=== PATIENT | female | born 1980 | race Caucasian/White ===

== ENCOUNTER 2017-07-24 05:52 | Emergency (ER) | payer OTHER ==
--- NOTE | 2017-07-24 06:08 | C.PDOC ---
History Of Present Illness Patient presents to the ED with complaints of chest pain with cough that has been worsening for three days. Patient notes cough is non-productive and has a history of smoking. Denies fever, chills, nausea, or vomiting. Time Seen by Provider: 07/24/17 06:08 Chief Complaint (Nursing): Chest Pain History Per: Patient History/Exam Limitations: no limitations Onset/Duration Of Symptoms: Days (3 days ) Current Symptoms Are (Timing): Still Present Severity: Mild Pain Scale Rating Of: 4 Quality: "Pain" Associated Symptoms: denies: Nausea, Dyspnea, Diaphoresis, Syncope Modifying Factors: None Exacerbating Factors: Other (cough ) Alleviating Factors: None Recent travel outside of the [place]: No Past Medical History Reviewed: Historical Data, Nursing Documentation, Vital Signs Vital Signs: Last Vital Signs Temp 99.3 F 07/24/17 06:01 Pulse 114 H 07/24/17 06:01 Resp 20 07/24/17 06:01 BP 108/73 07/24/17 06:01 Pulse Ox 96 07/24/17 06:41 - Medical History PMH: Hypercholesterolemia Family History: States: Unknown Family Hx - Social History Hx Tobacco Use: Yes (light smoker) Hx Alcohol Use: No Hx Substance Use: No - Immunization History Hx Tetanus Toxoid Vaccination: No Hx Influenza Vaccination: No Hx Pneumococcal Vaccination: No Review Of Systems Constitutional: Negative for: Fever, Chills Cardiovascular: Positive for: Chest Pain Respiratory: Positive for: Cough. Negative for: Shortness of Breath Gastrointestinal: Negative for: Nausea, Vomiting Genitourinary: Negative for: Dysuria Musculoskeletal: Negative for: Back Pain Skin: Negative for: Rash Neurological: Negative for: Weakness Psych: Negative for: Anxiety Physical Exam - Physical Exam Appears: Non-toxic, No Acute Distress Skin: Warm, Dry Head: Atraumatic Eye(s): bilateral: Normal Inspection Oral Mucosa: Moist Neck: Supple Chest: Symmetrical, No Deformity Cardiovascular: Rhythm Regular, No Murmur Respiratory: No Rales, No Rhonchi, Wheezing (scattered wheezing ) Gastrointestinal/Abdominal: Soft, No Tenderness, No Distention, No Guarding, No Rebound Back: No CVA Tenderness Extremity: Normal ROM, No Tenderness Extremity: Bilateral: Atraumatic, Normal Color And Temperature, Normal ROM Pulses: Left Dorsalis Pedis: Normal, Right Dorsalis Pedis: Normal Neurological/Psych: Oriented x3, Normal Speech, Normal Cognition Gait: Steady ED Course And Treatment ECG: Interpreted By Me, Viewed By Me ECG Rhythm: Sinus Rhythm (99), Nonspecific Changes O2 Sat by Pulse Oximetry: 96 (RA) Pulse Ox Interpretation: Normal - Radiology CXR: Interpreted by Me, Viewed By Me CXR Interpretation: No: Infiltrates, Fracture, Pnemothorax Disposition Counseled Patient/Family Regarding: Studies Performed, Diagnosis - Disposition Disposition Time: 07:00 Condition: FAIR Forms: [facility] (Solomon Islander) - Clinical Impression Clinical Impression: Bronchitis - Scribe Statement The provider has reviewed the documentation as recorded by the Scribe Roxanne Mora All medical record entries made by the Scribe were at my direction and personally dictated by me. I have reviewed the chart and agree that the record accurately reflects my personal performance of the history, physical exam, medical decision making, and the department course for this patient. I have also personally directed, reviewed, and agree with the discharge instructions and disposition. Physician Patient Turnover Patient Signed Over To: Imelda Bragg Handoff Comments: pending labs and disposition
[2017-07-24] MEDS ORDERED: Aspirin 325 mg EC Tablets PO STA (06:12)
[2017-07-24] MEDS ORDERED: Albuterol-Ipratrop 3 mg / 0.5 (3 ml) UD IH SCH (06:15)
[2017-07-24] MEDS ORDERED: Albuterol-Ipratrop 3 mg / 0.5 (3 ml) UD ONE (06:25)
[2017-07-24] MEDS ORDERED: Aspirin 325 mg EC Tablets PO ONE (06:25)
[2017-07-24 07:00] LABS: BASO % 0.4 % (0.0-2.0); EOS % 0.2 % (0.0-4.0); HEMATOCRIT 38.5 % (34.0-47.0); LYMPH # 2.4 K/uL (1.0-4.3); LYMPH % 22.3 % (20.0-40.0); MEAN CELL VOLUME 90.7 fL (81.0-99.0); MEAN CORPUSCULAR HEMOGLOBIN 31.3 pg (27.0-31.0); MEAN CORPUSCULAR HGB CONC 34.6 g/dL (33.0-37.0); MEAN PLATELET VOLUME 7.7 fL (7.2-11.7); MONO # 1.2 K/uL (0.0-0.8); MONO % 11.4 % (0.0-10.0); RED CELL DISTRIBUTION WIDTH 12.4 % (11.5-14.5); WHITE BLOOD COUNT 10.7 K/uL (4.8-10.8)
[2017-07-24 07:12] LABS: ALB/GLOB RATIO 1.5 (1.0-2.1); ALKALINE PHOSPHATASE 61 U/L (38-126); ALT/SGPT 44 U/L (9-52); AST/SGOT 36 U/L (14-36); BILIRUBIN,TOTAL 0.6 mg/dL (0.2-1.3); BLOOD UREA NITROGEN 10 mg/dL (7-17); CALCIUM 8.4 mg/dl (8.6-10.4); CARBON DIOXIDE 21 mmol/L (22-30); CHLORIDE 102 mmol/L (98-107); GFR AFRICAN-AMERICAN > 60; GLUCOSE,RANDOM 109 mg/dL (65-105); POTASSIUM 3.9 mmol/L (3.6-5.2); SODIUM 138 mmol/L (132-148); TOTAL PROTEIN 6.5 g/dL (6.3-8.3)
[2017-07-24 07:16] LABS: INR 1.1
[2017-07-24 07:18] LABS: RBC URINE 17 /hpf (0-3); URINE BACTERIA OCC (<OCC); URINE BILIRUBIN NEGATIVE (NEGATIVE); URINE BLOOD 1+ (NEGATIVE); URINE COLOR Yellow (YELLOW); URINE GLUCOSE (UA) NORMAL (Normal); URINE KETONE NEGATIVE (NEGATIVE); URINE LEUKOCYTE ESTERASE NEG Leu/uL (Negative); URINE PROTEIN NEGATIVE (NEGATIVE); URINE UROBILINOGEN NORMAL mg/dL (0.2-1.0); WBC URINE 5 /hpf (0-5)
[2017-07-24 07:20] VITALS: O2SAT 96
--- NOTE | 2017-07-24 08:55 | RAD ---
PROCEDURE: CHEST RADIOGRAPH, 1 VIEW HISTORY: Shortness of breath COMPARISON: None available. FINDINGS: LUNGS: The lungs are clear. PLEURA: No pneumothorax or pleural fluid seen. CARDIOVASCULAR: Normal. OSSEOUS STRUCTURES: No significant abnormalities. VISUALIZED UPPER ABDOMEN: Normal. OTHER FINDINGS: None. IMPRESSION: No active pulmonary disease.
[2017-07-24 09:13] VITALS: BP 113/59; PULSE 94; RESP 18; TEMP 98.3
== END 2017-07-24 09:13 | disposition home or self-care (01) ==
LOC: C.ER 05:52
DX: J45.901 Unspecified asthma with (acute) exacerbation (principal)
CPT/HCPCS: 71010; 80053; 81001; 84484; 84703; 85025; 85610; 96374; 96375; 99285; J2405; J2930

== ENCOUNTER 2017-08-15 13:01 | Emergency (ER) | payer OTHER ==
[2017-08-15 13:06] VITALS: O2SAT 96
[2017-08-15] MEDS ORDERED: guaiFENesin 200 mg/10 ml Syrup UD PO ONE (13:39)
[2017-08-15] MEDS ORDERED: guaiFENesin 200 mg/10 ml Syrup UD ONE (14:00)
[2017-08-15] MEDS ORDERED: Albuterol-Ipratrop 3 mg / 0.5 (3 ml) UD ONE (14:00)
--- NOTE | 2017-08-15 14:02 | C.PDOC ---
History Of Present Illness 37 year old female with a history of asthma and smoking presents to the ED with complaints of cough, cold symptoms, body aches, and chills for two days. Patient notes a sick contact, her friend, and denies fever, nausea, vomiting, chest pain, shortness of breath, or recent travel. Time Seen by Provider: 08/15/17 13:21 Chief Complaint (Nursing): Cough, Cold, Congestion History Per: Patient History/Exam Limitations: no limitations Onset/Duration Of Symptoms: Days (2 days ) Current Symptoms Are (Timing): Still Present Location Of Pain: Diffuse Myalgias Sick Contacts (Context): Friend(s) Associated Symptoms: Chills, Cough, Myalgias. denies: Fever, Nausea, Vomiting, Diarrhea Ear Symptoms: Bilateral: None Recent travel outside of the [place]: No Past Medical History Reviewed: Historical Data, Nursing Documentation, Vital Signs Vital Signs: Last Vital Signs Temp 98.0 F 08/15/17 15:45 Pulse 86 08/15/17 15:45 Resp 18 08/15/17 15:54 BP 111/70 08/15/17 15:45 Pulse Ox 96 08/15/17 18:27 - Medical History PMH: Asthma, Hypercholesterolemia Family History: States: Unknown Family Hx - Social History Hx Tobacco Use: Yes (light smoker) Hx Alcohol Use: No Hx Substance Use: No - Immunization History Hx Tetanus Toxoid Vaccination: No Hx Influenza Vaccination: No Hx Pneumococcal Vaccination: No Review Of Systems Constitutional: Positive for: Chills, Other (generalized bodyaches ). Negative for: Fever Cardiovascular: Negative for: Chest Pain, Palpitations Respiratory: Positive for: Cough. Negative for: Shortness of Breath Gastrointestinal: Negative for: Nausea, Vomiting, Abdominal Pain, Diarrhea Physical Exam - Physical Exam Appears: Non-toxic, No Acute Distress Skin: Warm, Dry Head: Atraumatic, Normacephalic Eye(s): bilateral: Normal Inspection, PERRL, EOMI Ear(s): Bilateral: Normal Nose: Normal, No Discharge Oral Mucosa: Moist Throat: Normal, No Erythema, No Exudate Neck: Normal ROM, Supple Chest: Symmetrical, No Deformity Cardiovascular: Rhythm Regular, No Murmur Respiratory: No Accessory Muscle Use, No Rales, Rhonchi (slight rhonci ), Wheezing (expiratory wheeze bilaterally ) ED Course And Treatment O2 Sat by Pulse Oximetry: 96 (RA) Progress Note: CXR and nebulizer treatment was ordered. Patient was given predniSONE. Medical Decision Making Medical Decision Making: CXR : NAD, as read by PA. On re-evaluation, patient is resting comfortably in bed in no acute distress, breathing is easy and unlabored, speaking in full sentences. On exam, lungs are clear to auscultation with no wheezing and no rhonchi. Disposition Counseled Patient/Family Regarding: Studies Performed, Diagnosis, Need For Followup, Rx Given - Disposition Disposition: HOME/ ROUTINE Disposition Time: 15:15 Condition: IMPROVED Additional Instructions: Follow up with your pmd in 2 days for re-evaluation and follow up. Rest, drink plenty of fluids, take medication as prescribed. Return to the ER at any time for any new or worsening symptoms. Prescriptions: Albuterol 0.083% [Albuterol Sulfate 3 Ml] 3 ml IH Q4 #100 neb Azithromycin [Z-Dragan] 250 mg PO DAILY #6 tab Guaifenesin 400 mg PO QID #20 tablet Nebulizer [Altera Nebulizer] 1 each MC DAILY #1 each predniSONE [predniSONE Tab] 40 mg PO DAILY #8 tab Instructions: Acute Bronchitis (ED) Forms: [facility] (Salvadorean), Work Excuse Print Language: SLOVENIAN - Clinical Impression Clinical Impression: Bronchitis - PA / REED FIXER / Resident Statement MD/DO has reviewed & agrees with the documentation as recorded. - Scribe Statement The provider has reviewed the documentation as recorded by the Scribe Roxanne Mora All medical record entries made by the Scribe were at my direction and personally dictated by me. I have reviewed the chart and agree that the record accurately reflects my personal performance of the history, physical exam, medical decision making, and the department course for this patient. I have also personally directed, reviewed, and agree with the discharge instructions and disposition.
[2017-08-15] MEDS: Albuterol-Ipratrop 3 mg / 0.5 (3 ml) UD IH SCH (14:12)
[2017-08-15 15:46] VITALS: BP 111/70; PULSE 86; TEMP 98
[2017-08-15 15:55] VITALS: RESP 18
--- NOTE | 2017-08-15 16:58 | RAD ---
HISTORY: cough COMPARISON: 07/24/2017 TECHNIQUE: Chest PA and lateral FINDINGS: LUNGS: On the frontal view a small triangular opacity projects over the left hemidiaphragm and left heart -not appreciated on the prior study or the chest x-ray with the obstructive series dated 06/15/2016 . No prior lateral views for comparison available. Given the marked shallow inspiration on both the frontal and lateral views -the possibility of a small triangular consolidative infiltrate and/or atelectasis projecting over the left lung base perhaps posteriorly on lateral view needs to be considered. PLEURA: No significant pleural effusion identified. No pneumothorax apparent. CARDIOVASCULAR: Normal. OSSEOUS STRUCTURES: No significant abnormalities. VISUALIZED UPPER ABDOMEN: Normal. OTHER FINDINGS: None. IMPRESSION: Indeterminate findings at the left lung base. Recommend repeat chest x-ray PA and lateral with much greater inspiration. If the patient cannot tolerate this, consider noncontrast CT chest
== END 2017-08-15 15:55 | disposition home or self-care (01) ==
LOC: C.ER 13:01
DX: J40 Bronchitis, not specified as acute or chronic (principal); E78.00 Pure hypercholesterolemia, unspecified; Z87.891 Personal history of nicotine dependence

== ENCOUNTER 2017-11-07 14:13 | Emergency (ER) | payer OTHER ==
[2017-11-07 14:30] VITALS: BP 94/64; PULSE 88; RESP 18; TEMP 98.1; O2SAT 98
== END 2017-11-07 15:33 | disposition left against medical advice (07) ==
LOC: C.ER 14:13
DX: Z02.89 Encounter for other administrative examinations (principal); R42 Dizziness and giddiness

== ENCOUNTER 2017-12-06 04:31 | Inpatient (IN) | payer OTHER ==
[2017-12-06] MEDS ORDERED: Albuterol-Ipratrop 3 mg / 0.5 (3 ml) UD ONE ×2 (04:45→05:09)
[2017-12-06] MEDS ORDERED: Albuterol-Ipratrop 3 mg / 0.5 (3 ml) UD INH STA ×3 (04:45→05:01)
--- NOTE | 2017-12-06 05:03 | C.PDOC ---
History Of Present Illness <Arie Adams R - Last Filed: 12/06/17 05:09> <AlicegretchenClay E - Last Filed: 12/06/17 10:46> Patient is a 37 y/o female who presents complaining of fever, body aches, cough , and shortness of breath for the past 3 days. Reports past medical history of asthma. Patient speaking in full sentences. No vomiting or chest pain. (AdamsShaniquael R) History Per: Patient History/Exam Limitations: no limitations Onset/Duration Of Symptoms: Days (x3) Current Symptoms Are (Timing): Still Present <Arie Adams R - Last Filed: 12/06/17 05:09> <AlicegretchenClay E - Last Filed: 12/06/17 10:46> Time Seen by Provider: 12/06/17 04:55 Chief Complaint (Nursing): Flu-like Symptoms Past Medical History Reviewed: Historical Data, Nursing Documentation, Vital Signs - Medical History PMH: Asthma, Hypercholesterolemia Other Surgeries: Right wrist surgery, tubal ligation Family History: States: No Known Family Hx - Social History Hx Tobacco Use: Yes (light smoker) Hx Alcohol Use: No Hx Substance Use: No - Immunization History Hx Tetanus Toxoid Vaccination: No Hx Influenza Vaccination: No Hx Pneumococcal Vaccination: No <Arie Adams R - Last Filed: 12/06/17 05:09> Vital Signs: Last Vital Signs Temp 100.3 F H 12/06/17 06:36 Pulse 107 H 12/06/17 08:06 Resp 23 12/06/17 08:06 BP 102/58 L 12/06/17 08:06 Pulse Ox 92 L 12/06/17 08:06 Review Of Systems Constitutional: Positive for: Fever, Other (body aches) Cardiovascular: Negative for: Chest Pain Respiratory: Positive for: Cough, Shortness of Breath Gastrointestinal: Negative for: Vomiting <Arie Adams - Last Filed: 12/06/17 05:09> Physical Exam - Physical Exam Appears: Non-toxic, No Acute Distress Skin: Normal Color, Warm, Dry Head: Atraumatic, Normacephalic Eye(s): bilateral: Normal Inspection, PERRL, EOMI Oral Mucosa: Moist Neck: Normal ROM, Supple Chest: Symmetrical Cardiovascular: Rhythm Regular, No Murmur Respiratory: Rhonchi (bilaterally at the bases), Wheezing (bilaterally) Gastrointestinal/Abdominal: Normal Exam, Soft, No Tenderness Back: Normal Inspection, No Vertebral Tenderness Extremity: Bilateral: Atraumatic, Normal Color And Temperature, Normal ROM Neurological/Psych: Oriented x3, Normal Speech <Arie Adams - Last Filed: 12/06/17 05:09> ED Course And Treatment O2 Sat by Pulse Oximetry: 90 Pulse Ox Interpretation: Abnormal <Arie Adams - Last Filed: 12/06/17 05:09> - Laboratory Results Result Diagrams: 12/06/17 05:41 12/06/17 05:41 Progress Note: Pt was signed out to me at 7am by Dr. Adams to reassess pt. After Steroids, multiple Duonebs and Mg, pt is stilly hypoxic on RA. Will keep for observation. <Clay Jerome E - Last Filed: 12/06/17 10:46> Medical Decision Making <Arie Adams - Last Filed: 12/06/17 05:09> <Clay Jerome E - Last Filed: 12/06/17 10:46> Medical Decision Making: Ordered blood work, EKG, flu swab, and chest x-ray. Patient given duoneb treatments, Tylenol, and solu-medrol 125mg in the ER. (Arie Adams) Disposition <Arie Adams - Last Filed: 12/06/17 05:09> Discussed With : Ayush Parks Comment: He accepted pt on his service. Counseled Patient/Family Regarding: Studies Performed, Diagnosis - Disposition Disposition Time: 10:46 <Clay Jerome E - Last Filed: 12/06/17 10:46> - Disposition Disposition: HOSPITALIZED Condition: FAIR - Clinical Impression Clinical Impression: Status asthmaticus, Hypoxia - Scribe Statement The provider has reviewed the documentation as recorded by the Scribe <Arie Adams - Last Filed: 12/06/17 05:09> <Clay Jerome E - Last Filed: 12/06/17 10:46> - Scribe Statement Yazmin Mathur (Arie Adams) Provider Attestation: All medical record entries made by the Scribe were at my direction and personally dictated by me. I have reviewed the chart and agree that the record accurately reflects my personal performance of the history, physical exam, medical decision making, and the department course for this patient. I have also personally directed, reviewed, and agree with the discharge instructions and disposition. (Arie Adams)
[2017-12-06 05:45] LABS: BASO % 0.2 % (0.0-2.0); EOS % 0.1 % (0.0-4.0); HEMOGLOBIN 13.3 g/dL (11.0-16.0); LYMPH # 1.5 K/uL (1.0-4.3); LYMPH % 13.7 % (20.0-40.0); MEAN CELL VOLUME 90.4 fL (81.0-99.0); MEAN CORPUSCULAR HEMOGLOBIN 31.4 pg (27.0-31.0); MEAN CORPUSCULAR HGB CONC 34.8 g/dL (33.0-37.0); MEAN PLATELET VOLUME 7.7 fL (7.2-11.7); MONO # 0.9 K/uL (0.0-0.8); MONO % 8.4 % (0.0-10.0); NEUT # 8.5 K/uL (1.8-7.0); NEUT % 77.6 % (50.0-75.0); RBC 4.23 Mil/uL (3.80-5.20); RED CELL DISTRIBUTION WIDTH 12.6 % (11.5-14.5); WHITE BLOOD COUNT 10.9 K/uL (4.8-10.8)
[2017-12-06 05:56] LABS: BLOOD UREA NITROGEN 9 mg/dL (7-17); GFR AFRICAN-AMERICAN > 60; GFR NON-AFRICAN AMERICAN > 60
[2017-12-06 05:57] LABS: ALB/GLOB RATIO 1.1 (1.0-2.1); ALBUMIN 3.9 g/dL (3.5-5.0); ALT/SGPT 46 U/L (9-52); AST/SGOT 42 U/L (14-36); CALCIUM 8.3 mg/dl (8.6-10.4)
[2017-12-06] MEDS ORDERED: Magnesium Sulfate 1 gm in D5W 1 GM/100 ML BAG IVPB STA (08:12)
[2017-12-06] MEDS ORDERED: Albuterol-Ipratrop 3 mg / 0.5 (3 ml) UD IH STA (08:13)
--- NOTE | 2017-12-06 08:13 | RAD ---
HISTORY: SOB COMPARISON: Chest x-ray performed 08/15/17 TECHNIQUE: Chest PA and lateral FINDINGS: Examination limited by habitus and hypoinflation. LUNGS: Minimal bibasilar atelectasis. No focal consolidation. Please note that chest x-ray has limited sensitivity for the detection of pulmonary masses. PLEURA: No significant pleural effusion identified. No definite pneumothorax . CARDIOVASCULAR: Heart size appears within normal limits. OSSEOUS STRUCTURES: No acute osseous abnormality identified. VISUALIZED UPPER ABDOMEN: Unremarkable. OTHER FINDINGS: None. IMPRESSION: Hypoinflation. Minimal bibasilar atelectasis.
[2017-12-06] MEDS ORDERED: Magnesium Sulfate 1 gm in D5W 1 GM/100 ML BAG IVPB ONE (08:33)
[2017-12-06] MEDS ORDERED: Azithromycin 500mg/250ML NS 500 MG/250 ML BAG IVPB STA (10:47)
--- NOTE | 2017-12-06 13:58 | CP.PCM.HP ---
History of Present Illness - History of Present Illness History of Present Illness: COMPREHENSIVE HISTORY & PHYSICAL EXAM HPI COUGH WITH WHEEZING A/W WHITE EXP. IN ER PT NOT WELL RESPONDED TO BRONCHODILATORS AND ADMITTED FOR FURTHER CARE PAST HIST. ASTHMA PERSONAL HIST: Smoking. N Alcohol. N Allergy N Travel_- . FAMILY HIST : ROS : Constitutional: Negative for weight change, chills, night sweats, fatigue and usage of assist device. Eyes: Negative for redness, swelling, itching, discharge, vision changes, blurry vision, double vision, glaucoma, cataracts, Ears: Negative for hearing loss, ringing, , tinnitus, vertigo Nose: Negative for rhinorrhea, stuffiness, sniffing, itching, postnasal drip, discoloration, nasal congestion and epistaxis. Throat: Negative for throat clearing, sore throat, hoarseness, difficulty swallowing and difficulty speaking. Respiratory: Negative for , hemoptysis, snoring at night, Cardiovascular: Negative for chest pain, palpitations, orthopnea, PND, Edema of legs, leg cramps, angina, claudication, , irregular heartbeat, Neurology: Negative for irritability, muscle weakness, numbness and tingling, seizures, tremors, migraines, slurred speech, syncope, memory loss, mood changes , recurrent headaches Gastrointestinal: Negative for difficulty swallowing, diarrhea, constipation, black stools, rectal bleeding, nausea, flatulence, reflux, poor appetite, changes in bowel habits, abdominal pain Genitourinary: Negative for frequent urination, hematuria, discharge, incontinence, urinary retention, frequent UTI, Psychiatric: Negative for depression, anxiety/panic, suicidal tendencies, Musculoskeletal: Negative for swollen joints, back pain, , neck pain, morning stiffness of joints, . Skin: Negative for rash, ulcers, itching, dry skin and pigmented lesions. P/E: Constitutional: Appears stated age and in no apparent distress. Head: Normocephalic. Ears: External ear canals patent without inflammation. Tympanic membranes intact with normal light reflex and landmark. Eyes: Pupils are central, bilaterally equal, symmetrical and reacts to light with normal movements and no icterus or pallor. Nose: External nares are patent. Mucosa is pink Mouth-Throat: Good general appearance and condition. No post-pharyngeal/oropharyngeal erythema and tonsillar hypertrophy. Good dental hygiene. Neck-Lymphatic: Neck is supple with normal ROM, no thyromegaly, lymph nodes or masses. JVD is normal with no carotid bruit. Lungs: MARINA WHEEZE WITH RONCHI Cardiovascular: S1 and S2 are normal with no murmurs, gallops and rub. GI Exam: No hepatomegaly. Abdomen is soft and non-tender. No Organomegaly , masses or hernias are evident and bowel sounds are normal and active. Neurology: Higher function and all cranial nerves intact, with no gross motor or sensory deficit. Superficial and deep reflexes are normal with downwards planters. No cerebellar deficit with normal gait. Musculoskeletal: No tender spots with normal curvature of the spine with no swelling or restricted ROM of the small and large joints. Extremities: Homans sign absent. Intact pulses with no pitting edema, calf tenderness or skin color changes. Skin: No rash, eruptions or abnormal skin pigmentation LAB/RADIOLOGY: ASSESMENT : ACUTE EXACERBATION OF B ASTHMA RESP INFECTION PLAN:SEE ORDERS Present on Admission - Present on Admission Any Indicators Present on Admission: No Past Patient History - Infectious Disease Hx of Infectious Diseases: None - Past Social History Smoking Status: Light Smoker < 10 Cigarettes Daily - CARDIAC Hx Hypercholesterolemia: Yes - PULMONARY Hx Asthma: Yes - MUSCULOSKELETAL/RHEUMATOLOGICAL Other/Comment: Sciatica - PSYCHIATRIC Hx Substance Use: No - SURGICAL HISTORY Hx Surgeries: Yes Hx Orthopedic Surgery: Yes (right wrist) Hx Tubal Ligation: Yes Other/Comment: right wrist. - ANESTHESIA Hx Anesthesia: Yes Hx Anesthesia Reactions: No Meds Allergies/Adverse Reactions: Allergies Allergy/AdvReac Type Severity Reaction Status Date / Time Penicillins Allergy Intermediate RASH Verified 12/06/17 04:35 Results - Vital Signs Recent Vital Signs: Last Vital Signs Temp 98.8 F 12/06/17 11:53 Pulse 101 H 12/06/17 11:53 Resp 23 12/06/17 11:53 BP 108/63 12/06/17 11:53 Pulse Ox 95 12/06/17 11:53 - Labs Result Diagrams: 12/06/17 05:41 12/06/17 05:41 Labs: Laboratory Results - last 24 hr 12/06/17 12/06/17 12/06/17 05:41 05:41 05:41 WBC 10.9 H RBC 4.23 Hgb 13.3 Hct 38.2 MCV 90.4 MCH 31.4 H MCHC 34.8 RDW 12.6 Plt Count 336 MPV 7.7 Neut % (Auto) 77.6 H Lymph % (Auto) 13.7 L [place] % (Auto) 8.4 Eos % (Auto) 0.1 Baso % (Auto) 0.2 Neut # (Auto) 8.5 H Lymph # (Auto) 1.5 [place] # (Auto) 0.9 H Eos # (Auto) 0.0 Baso # (Auto) 0.0 Sodium 134 Potassium 3.7 Chloride 99 Carbon Dioxide 23 Anion Gap 16 BUN 9 Creatinine 0.7 Est GFR ( Amer) > 60 Est GFR (Non-Af Amer) > 60 Random Glucose 151 H Calcium 8.3 L Total Bilirubin 0.7 AST 42 H ALT 46 Alkaline Phosphatase 80 Total Protein 7.5 Albumin 3.9 Globulin 3.6 Albumin/Globulin Ratio 1.1 Influenza Typ A,B (EIA) Negative for flu a/b
[2017-12-06] MEDS ORDERED: methylPREDNISolone 50 MG in Sodium Chloride 0.9% 100 ML IVPB SCH (14:00)
[2017-12-06] MEDS: Albuterol-Ipratrop 3 mg / 0.5 (3 ml) UD INH SCH ×2 (16:45→20:38)
[2017-12-06] MEDS ORDERED: Promethazine DM 6.25 mg-15 mg/5 ml Syrup PO PRN (19:47)
--- NOTE | 2017-12-06 21:46 | CP.PCM.CON ---
History of Present Illness - History of Present Illness History of Present Illness: INFECTIOUS DISEASE CONSULT; HPI;. Patient is a 37 y/o female who presents complaining of fever, body aches, cough , and shortness of breath for the past 3 days. Reports past medical history of asthma. PATIENT DID NOT RESPOND TO BRONCHODILATORS AND THEREFORE ADVISED ADMISSION. PATIENT WAS GIVEN A DOSE OF ZITHROMAX. INFECTIOUS DISEASE CONSULTATION REQUESTED BY PMD. CXR 12/06/17 SHOWED HYPOINFLATION AND BY BIBASILAR ATELECTASIS. INFLUENZA a AND b RAPID ANTIGEN TEST IS NEGATIVE. PATIENT DENIES ANY DIARRHEA OR JOINT PAINS. PMH: Asthma, Hypercholesterolemia Family History: States: Unknown Family Hx - Social History Hx Tobacco Use: Yes (light smoker) Hx Alcohol Use: No Hx Substance Use: No - Immunization History Hx Tetanus Toxoid Vaccination: No Hx Influenza Vaccination: No Hx Pneumococcal Vaccination: No ALLERGY; PCN Review of Systems - Constitutional Constitutional: absent: Chills, Fever - EENT Eyes: absent: Decreased Night Vision - Cardiovascular Cardiovascular: Dyspnea. absent: Chest Pain - Respiratory Respiratory: Cough, Dyspnea, Excessive Mucous Production - Gastrointestinal Gastrointestinal: absent: Constipation, Diarrhea - Integumentary Integumentary: absent: Rash - Neurological Neurological: Dizziness. absent: Disequilibrium - Psychiatric Psychiatric: Anxiety - Hematologic/Lymphatic Hematologic: As Per HPI. absent: Easy Bleeding, Lymphadenopathy Past Patient History - Infectious Disease Hx of Infectious Diseases: None - Past Social History Smoking Status: Light Smoker < 10 Cigarettes Daily - CARDIAC Hx Hypercholesterolemia: Yes - PULMONARY Hx Asthma: Yes - MUSCULOSKELETAL/RHEUMATOLOGICAL Other/Comment: Sciatica - PSYCHIATRIC Hx Substance Use: No - SURGICAL HISTORY Hx Surgeries: Yes Hx Orthopedic Surgery: Yes (right wrist) Hx Tubal Ligation: Yes Other/Comment: right wrist. - ANESTHESIA Hx Anesthesia: Yes Hx Anesthesia Reactions: No Meds Allergies/Adverse Reactions: Allergies Allergy/AdvReac Type Severity Reaction Status Date / Time Penicillins Allergy Intermediate RASH Verified 12/06/17 04:35 - Medications Medications: Current Medications Acetaminophen (Tylenol 325mg Tab) 650 mg PO Q8 PRN PRN Reason: Headache Last Admin: 12/06/17 19:54 Dose: 650 mg Albuterol/Ipratropium (Duoneb 3 Mg/0.5 Mg (3 Ml) Ud) 3 ml INH RQ4 BETZAIDA Last Admin: 02/09/18 20:38 Dose: 3 ml Moxifloxacin HCl (Avelox Iv 400mg/250ml Ns) 400 mg in 250 mls @ 167 mls/hr IVPB Q24H BETZAIDA Methylprednisolone (Solu-Medrol) 50 mg IVP Q8H BETZAIDA Last Admin: 12/06/17 14:45 Dose: 50 mg Pneumococcal Polyvalent Vaccine (Pneumovax 23 Vaccine) 0.5 ml IM .ONCE ONE Stop: 12/09/17 10:01 Promethazine HCl/Dextromethorphan (Phenergan Dm Syrup) 5 ml PO TID PRN PRN Reason: Cough Physical Exam - Constitutional Appears: No Acute Distress - Head Exam Head Exam: NORMAL INSPECTION - Eye Exam Eye Exam: EOMI, PERRL - ENT Exam ENT Exam: Normal Oropharynx - Neck Exam Neck exam: Positive for: Normal Inspection - Respiratory Exam Respiratory Exam: Wheezes (B/L) - Cardiovascular Exam Cardiovascular Exam: Tachycardia, REGULAR RHYTHM, +S1, +S2 - GI/Abdominal Exam GI & Abdominal Exam: Normal Bowel Sounds, Soft. absent: Organomegaly - Extremities Exam Extremities exam: Positive for: normal capillary refill, pedal pulses present. Negative for: calf tenderness, pedal edema - Neurological Exam Neurological exam: Alert, CN II-XII Intact, Oriented x3, Reflexes Normal - Psychiatric Exam Psychiatric exam: Normal Mood - Skin Skin Exam: Normal Color, Warm Results - Vital Signs Recent Vital Signs: Last Vital Signs Temp 98.1 F 12/06/17 14:45 Pulse 92 H 12/06/17 17:01 Resp 25 H 12/06/17 14:45 BP 105/65 12/06/17 14:45 Pulse Ox 93 L 12/06/17 16:21 - Labs Result Diagrams: 12/08/17 09:35 12/08/17 14:53 Labs: Laboratory Results - last 24 hr 12/06/17 12/06/17 12/06/17 05:41 05:41 05:41 WBC 10.9 H RBC 4.23 Hgb 13.3 Hct 38.2 MCV 90.4 MCH 31.4 H MCHC 34.8 RDW 12.6 Plt Count 336 MPV 7.7 Neut % (Auto) 77.6 H Lymph % (Auto) 13.7 L [place] % (Auto) 8.4 Eos % (Auto) 0.1 Baso % (Auto) 0.2 Neut # (Auto) 8.5 H Lymph # (Auto) 1.5 [place] # (Auto) 0.9 H Eos # (Auto) 0.0 Baso # (Auto) 0.0 Sodium 134 Potassium 3.7 Chloride 99 Carbon Dioxide 23 Anion Gap 16 BUN 9 Creatinine 0.7 Est GFR ( Amer) > 60 Est GFR (Non-Af Amer) > 60 Random Glucose 151 H Calcium 8.3 L Total Bilirubin 0.7 AST 42 H ALT 46 Alkaline Phosphatase 80 Total Protein 7.5 Albumin 3.9 Globulin 3.6 Albumin/Globulin Ratio 1.1 Influenza Typ A,B (EIA) Negative for flu a/b - Imaging and Cardiology Chest x-ray Status: Report reviewed by me (SEEE REPORT.) Assessment & Plan (1) Status asthmaticus Status: Acute (2) Hypoxia Status: Acute (3) Bronchitis Status: Acute (4) Diabetes 1.5, managed as type 2 Status: Acute - Assessment and Plan (Free Text) Plan: PLAN; PANCULTURE. ESR/CRP. SPUTUM GM STAIN /CULTURE. PATIENT RECEIVED ONE DOSE OF ZITHROMAX IN ER. START iv AVELOX 400 MG ONCE A DAY DAILY. 12/06/17. PULMONARY TOILET. IV STEROIDS PER PMD. PATIENT ON dUOnEB TREATMENTS. WILL FOLLOW ALONG WITH YOU AND MAKE ADJUSTMENTS OF ABX ONCE CULTURES ARE OBTAINED.
[2017-12-06] MEDS: Moxifloxacin IV 400mg/250ml NS 400 MG/250 ML BAG IVPB SCH (22:21)
[2017-12-07] MEDS: Albuterol-Ipratrop 3 mg / 0.5 (3 ml) UD INH SCH ×5 (00:18→17:08)
--- NOTE | 2017-12-07 13:48 | CP.PCM.PN ---
Subjective - Date & Time of Evaluation Date of Evaluation: 12/07/17 Time of Evaluation: 13:47 - Subjective Subjective: CHIEF COMPLAINTS TODAY : COUGH WITH WHEEZING ROS. HEENT : N. Resp : No pleuritic CP ,or hemoptysis Cardio : No anginal CP, PND, orthopnea, palpitation GI : No abd.pain, n/v ,diarrhea or GI bleeding . 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 Musculoskel : No joint swelling , Derm : No rash Psych : Normal affect. Ext : No swelling ,calf pain PE. Pt. is alert awake in no distress. V.S As noted in the chart Head ,ear nose,throat and eyes : Normal. Neck : Supple with normal carotids. Lungs: MARINA WHEEZ E Heart : S1 & S2 normal with S4. No murmur. Abd : Soft non tender with normal bowel sounds. Neuro : Moves all ext. with no localized deficit. Ext : No edema with intact pulses.Non tender calves Derm : No rashes or decubitus ulcer. LABS/RADIOLOGY: ASSESSMENT/PLAN : CONT IV AB/STEROIDS/NEB Objective - Vital Signs/Intake and Output Vital Signs (last 24 hours): Temp Pulse Resp BP Pulse Ox 98 F 74 20 121/75 97 12/07/17 08:04 12/07/17 08:04 12/07/17 08:04 12/07/17 08:04 12/07/17 08:04 Intake and Output: 12/07/17 12/07/17 11:59 23:59 Intake Total 1000 Balance 1000 - Medications Medications: Current Medications Acetaminophen (Tylenol 325mg Tab) 650 mg PO Q8 PRN PRN Reason: Headache Last Admin: 12/06/17 19:54 Dose: 650 mg Albuterol/Ipratropium (Duoneb 3 Mg/0.5 Mg (3 Ml) Ud) 3 ml INH RQ4 [facility] Last Admin: 12/07/17 11:15 Dose: 3 ml Moxifloxacin HCl (Avelox Iv 400mg/250ml Ns) 400 mg in 250 mls @ 167 mls/hr IVPB Q24H [facility] Last Admin: 12/06/17 22:21 Dose: 167 mls/hr Methylprednisolone (Solu-Medrol) 50 mg IVP Q8H [facility] Last Admin: 12/07/17 13:40 Dose: 50 mg Pneumococcal Polyvalent Vaccine (Pneumovax 23 Vaccine) 0.5 ml IM .ONCE ONE Stop: 12/09/17 10:01 Promethazine HCl/Dextromethorphan (Phenergan Dm Syrup) 5 ml PO TID PRN PRN Reason: Cough - Labs Labs: 12/06/17 05:41 12/06/17 05:41
[2017-12-07] MEDS: Moxifloxacin IV 400mg/250ml NS 400 MG/250 ML BAG IVPB SCH (20:26)
[2017-12-08] MEDS: Albuterol-Ipratrop 3 mg / 0.5 (3 ml) UD INH SCH ×4 (01:25→20:35)
[2017-12-08 09:44] LABS: HEMOGLOBIN 13.4 g/dL (11.0-16.0); MEAN CELL VOLUME 91.7 fL (81.0-99.0); MEAN CORPUSCULAR HEMOGLOBIN 31.2 pg (27.0-31.0); MEAN CORPUSCULAR HGB CONC 34.1 g/dL (33.0-37.0); MEAN PLATELET VOLUME 7.9 fL (7.2-11.7); RBC 4.3 Mil/uL (3.80-5.20); RED CELL DISTRIBUTION WIDTH 12.7 % (11.5-14.5)
[2017-12-08 09:48] LABS: WHITE BLOOD COUNT 24.8 K/uL (4.8-10.8)
[2017-12-08 10:24] LABS: ALB/GLOB RATIO 1.1 (1.0-2.1); ALBUMIN 3.9 g/dL (3.5-5.0); ALT/SGPT 31 U/L (9-52); AST/SGOT 26 U/L (14-36); BLOOD UREA NITROGEN 20 mg/dL (7-17); CALCIUM 8.7 mg/dl (8.6-10.4); GFR AFRICAN-AMERICAN > 60; GFR NON-AFRICAN AMERICAN > 60
--- NOTE | 2017-12-08 10:29 | RAD ---
HISTORY: chest pain COMPARISON: Chest x-ray performed 12/06/17 TECHNIQUE: Chest, one view. FINDINGS: Examination limited by habitus and hypoinflation. LUNGS: Central vascular congestion. Mild left basilar atelectasis. No focal consolidation. Please note that chest x-ray has limited sensitivity for the detection of pulmonary masses. PLEURA: No significant pleural effusion identified. No definite pneumothorax . CARDIOVASCULAR: The cardiomediastinal silhouette appears within normal limits of size. OSSEOUS STRUCTURES: No acute osseous abnormality identified. VISUALIZED UPPER ABDOMEN: Unremarkable. OTHER FINDINGS: None. IMPRESSION: Hypoinflation. Central vascular congestion. Mild left basilar atelectasis.
--- NOTE | 2017-12-08 10:33 | PCM.RRT ---
TANK DRIVER Nurses Assessment - Situation Date: 12/08/17 Time TANK DRIVER was called: 09:17 TANK DRIVER Responder Arrival Time:: 09:17 TANK DRIVER Location:: Med/Oncology Room Number: 350a TANK DRIVER Reason for Call: Chest Pain TANK DRIVER Called By: RN - IV IV Inserted during TANK DRIVER?: No - Respiratory TANK DRIVER Delivery Method: Face Mask @% Oxygen Flow Rate: 3 Received Nebulizer Treatments: Yes Was the Patient Ventilated with Bag/Mask 100% O2?: No Secretions Suctioned?: No Was the Patient Intubated?: No Was the Patient Placed on a Ventilator?: No - Medication Medications Administered During TANK DRIVER: duoneb - Diagnostic Test Ordered EKG: Yes Chest X-Ray: Yes CT Scan: No - Stat Labs Ordered TANK DRIVER Stat Labs Ordered: CBC, BMP, TROPONIN CPR started during TANK DRIVER?: No - Vital Signs Vital Signs: Rapid Response Vital Sign Blood Pressure 123/78 Pulse Rate 81 Respiratory Rate 24 Temperature 98.3 F Oxygen Saturation 95 - Jane Coma Scale Coma Scale Eye Opening: Spontaneous Coma Scale Motor: Obeys Commands Movement Coma Scale Verbal: Oriented Coma Scale Total: 15 - Time TANK DRIVER Ended Time TANK DRIVER Ended: 09:38 - Vital Signs at end of TANK DRIVER Vital Signs at end of TANK DRIVER: Rapid Response End Vital Sign Blood Pressure 111/73 Pulse Rate 96 Respiratory Rate 22 Temperature 98.3 F O2 Sat by Pulse Oximetry 99 - Recommendations 5) TANK DRIVER Level of Care Recommendations: Remain in current setting Notifications: Attending Physician I.Reason for TANK DRIVER - A) Acute Change in Patient: (Select all that apply): Staff member or family is worried about patient - Neurological Status (Select all that apply): Alert, Responsive, Oriented, Verbal, Follows Commands - Respiratory Oxygen Delivery Method: Face Mask @% Oxygen Flow Rate: 3 - Constitutional Appears: No Acute Distress - Head Head Exam: ATRAUMATIC, NORMOCEPHALIC - Eyes Eye Exam: EOMI, Normal appearance - Respiratory Exam Respiratory Exam: Rales (bilateral basilar), Wheezes - Cardiovascular Exam Cardiovascular Exam: REGULAR RHYTHM, +S1, +S2 - GI/Abdominal Exam GI & Abdominal Exam: Soft, Normal Bowel Sounds. absent: Tenderness - Neurological Exam Neurological Exam: Alert, Awake, Oriented x3 - Extremities Exam Extremities Exam: absent: Pedal Edema Plan - Assessment of Findings&Treatment Plan This is a 37 year old female with PMHx Asthma, Hyperlipidemia. TANK DRIVER called for lower sternal chest pain. Patient had refused one of her Duoneb treatments this morning because she wanted to eat. Patient given 2 doses of Duoneb and responded well. Patient's chest pain improved after treatment. Labs, CXR, EKG, and cardiac enzymes ordered. CXR shows hypoinflation and atelectasis. EKG NSR with no acute ST changes. First set of cardiac enzymes negative. Message was left on Dr. Parks's answering service informing him of the TANK DRIVER and results from cardiac studies.
[2017-12-08 15:02] LABS: ABG ALLEN TEST POS; ARTERIAL BLOOD GAS HCO3 23.6 mmol/L (21-28); ARTERIAL BLOOD GAS HEMOGLOBIN 12.6 g/dL (11.7-17.4); ARTERIAL BLOOD GAS O2 SAT 98.9 % (95-98); ARTERIAL BLOOD GAS PCO2 32 mm/Hg (35-45); ARTERIAL BLOOD GAS PH 7.44 (7.35-7.45); ARTERIAL BLOOD GAS PO2 81 mm/Hg (80-100); ARTERIAL BLOOD GAS TCO2 22.7 mmol/L (22-28)
[2017-12-08 15:09] LABS: BLOOD UREA NITROGEN 19 mg/dL (7-17); CALCIUM 8.6 mg/dl (8.6-10.4); GFR AFRICAN-AMERICAN > 60; GFR NON-AFRICAN AMERICAN 50
[2017-12-08] MEDS: (Novolin R) Insulin Human Regular 100 units/ml vial SC SCH ×2 (17:26→21:34)
[2017-12-08] MEDS: Moxifloxacin IV 400mg/250ml NS 400 MG/250 ML BAG IVPB SCH (21:34)
[2017-12-09] MEDS: Albuterol-Ipratrop 3 mg / 0.5 (3 ml) UD INH SCH ×3 (01:15→19:01)
[2017-12-09 01:21] VITALS: RESP 20
[2017-12-09 07:00] LABS: HDL CHOLESTEROL 30 mg/dL (30-70)
[2017-12-09 07:10] LABS: LDL CHOLESTEROL 165 mg/dL (0-129)
[2017-12-09 07:53] LABS: BARBITURATES, UR NEGATIVE (NEGATIVE); BENZODIAZEPINES, UR NEGATIVE (NEGATIVE); OPIATES, UR NEGATIVE (NEGATIVE); PHENCYCLIDINE, UR NEGATIVE (NEGATIVE)
[2017-12-09] MEDS: (Novolin R) Insulin Human Regular 100 units/ml vial SC SCH ×4 (09:15→21:28)
[2017-12-09] MEDS ORDERED: Pneumococcal 23-Valent Vaccine IM ONE (10:00)
[2017-12-09] MEDS ORDERED: Influenza Vaccine 60 mcg/0.5 mL SYR (4YR UP) IM ONE (10:00)
[2017-12-09] MEDS: MethylPREDNISolone 40 mg Vial IVP SCH ×2 (10:49→17:44)
--- NOTE | 2017-12-09 11:08 | CARD ---
APPROVED REPORT EKG Measurement Heart [id number] <Conclusion> Sinus tachycardia Nonspecific T wave abnormality Prolonged QT Abnormal ECG
--- NOTE | 2017-12-09 13:31 | CP.PCM.PN ---
Subjective - Date & Time of Evaluation Date of Evaluation: 12/09/17 Time of Evaluation: 13:29 - Subjective Subjective: CHIEF COMPLAINTS TODAY : COUGH WITH WHEEZING NOT RESPONDING TO CURRENT MEDS PRO-BNP N DESATURATING ROS. HEENT : N. Resp : No pleuritic CP ,or hemoptysis Cardio : No anginal CP, PND, orthopnea, palpitation GI : No abd.pain, n/v ,diarrhea or GI bleeding . PHD INTERNSHIP : No headache, vertigo, focal deficit. Musculoskel : No joint swelling , Derm : No rash Psych : Normal affect. Ext : No swelling ,calf pain PE. Pt. is alert awake in no distress. V.S As noted in the chart Head ,ear nose,throat and eyes : Normal. Neck : Supple with normal carotids. Lungs: MARINA WHEEZ E Heart : S1 & S2 normal with S4. No murmur. Abd : Soft non tender with normal bowel sounds. Neuro : Moves all ext. with no localized deficit. Ext : No edema with intact pulses.Non tender calves Derm : No rashes or decubitus ulcer. LABS/RADIOLOGY: ASSESSMENT/PLAN : PULM EVAL Objective - Vital Signs/Intake and Output Vital Signs (last 24 hours): Temp Pulse Resp BP Pulse Ox 97.7 F 88 20 113/69 95 12/09/17 08:29 12/09/17 08:29 12/09/17 08:29 12/09/17 08:29 12/09/17 08:29 Intake and Output: 12/09/17 12/09/17 11:59 23:59 Intake Total 300 Balance 300 - Medications Medications: Current Medications Acetaminophen (Tylenol 325mg Tab) 650 mg PO Q8 PRN PRN Reason: Headache Last Admin: 12/06/17 19:54 Dose: 650 mg Albuterol/Ipratropium (Duoneb 3 Mg/0.5 Mg (3 Ml) Ud) 3 ml INH RQ6 [facility] Last Admin: 12/09/17 12:59 Dose: 3 ml Famotidine (Pepcid) 40 mg PO DAILY [facility] Last Admin: 12/09/17 09:15 Dose: 40 mg Moxifloxacin HCl (Avelox Iv 400mg/250ml Ns) 400 mg in 250 mls @ 167 mls/hr IVPB Q24H [facility] Last Admin: 12/08/17 21:34 Dose: 167 mls/hr Insulin Human Regular (Novolin R) 0 unit SC ACHS [facility] PRN Reason: Protocol Last Admin: 12/09/17 12:28 Dose: 3 unit Methylprednisolone (Solu-Medrol) 40 mg IVP Q8H [facility] Last Admin: 12/09/17 10:49 Dose: 40 mg Promethazine HCl/Dextromethorphan (Phenergan Dm Syrup) 5 ml PO TID PRN PRN Reason: Cough - Labs Labs: 12/08/17 09:35 12/08/17 14:53
[2017-12-09] MEDS ORDERED: Iodixanol 320 MG/ML 100 ML BOTTLE IV ONE (16:10)
--- NOTE | 2017-12-09 17:36 | CT ---
CTA chest PE protocol Indication: Rule out PE Technique: Contiguous axial images were obtained through the chest with intravenous contrast enhancement. Sagittal and coronal reconstructions were generated and reviewed. This CT exam was performed using 1 or more of the following dose reduction techniques: Automated exposure control, adjustment of the MAA and/or kV according to patient size, and/or use of iterative reconstruction technique. IV Contrast: 100 mL Visipaque 320 Radiation dose (DLP): 452.25 MGy-cm. Comparison: Chest x-ray performed 12/08/17 Findings: Visualized portions of the inferior thyroid gland appear unremarkable. The mediastinal and hilar vascular structures appear within normal limits. The heart appears within normal limits of size. No large central or segmental pulmonary embolus evident. Mild left basilar consolidation. No pleural effusion. No pneumothorax. No suspicious pulmonary nodules measuring greater than 5 mm. Limited visualized portions of the upper abdomen appear grossly unremarkable. No acute osseous abnormality is detected. Impression: Mild left basilar consolidation, likely atelectasis. No large central or segmental pulmonary embolus identified.
[2017-12-09] MEDS: Moxifloxacin IV 400mg/250ml NS 400 MG/250 ML BAG IVPB SCH (21:27)
--- NOTE | 2017-12-09 23:11 | CP.PCM.PN ---
Subjective - Date & Time of Evaluation Date of Evaluation: 12/09/17 Time of Evaluation: 23:11 - Subjective Subjective: CHIEF COMPLAINTS TODAY : AFEBRILE, S/P RR 12/08/17 NOTED C/O COUGH/WHEEZING. CHEST TIGHTNESS ROS. HEENT : N. Resp : No pleuritic CP ,or hemoptysis Cardio : No anginal CP, PND, orthopnea, palpitation GI : No abd.pain, n/v ,diarrhea or GI bleeding . 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 Musculoskel : No joint swelling , Derm : No rash Psych : Normal affect. Ext : No swelling ,calf pain PE. Pt. is alert awake in no distress. V.S As noted in the chart Head ,ear nose,throat and eyes : Normal. Neck : Supple with normal carotids. Lungs: MARINA EXPIRATORY WHEEZE Heart : S1 & S2 normal with S4. No murmur. Abd : Soft non tender with normal bowel sounds. Neuro : Moves all ext. with no localized deficit. Ext : No edema with intact pulses.Non tender calves Derm : No rashes or decubitus ulcer. LABS/RADIOLOGY: REVIEWED -VE TROPONINS X2. BLOOD CULTURES -VE ASSESSMENT/PLAN : PULM EVAL CONTINUE IV ABX IV AVELOX, IV STEROIDS. F/U CULTURES Objective - Vital Signs/Intake and Output Vital Signs (last 24 hours): Temp Pulse Resp BP Pulse Ox 97.3 F L 78 20 103/60 97 12/09/17 16:56 12/09/17 16:56 12/09/17 16:56 12/09/17 16:56 12/09/17 16:56 - Medications Medications: Current Medications Acetaminophen (Tylenol 325mg Tab) 650 mg PO Q8 PRN PRN Reason: Headache Last Admin: 12/09/17 17:46 Dose: 650 mg Albuterol/Ipratropium (Duoneb 3 Mg/0.5 Mg (3 Ml) Ud) 3 ml INH RQ6 [facility] Last Admin: 12/09/17 19:01 Dose: 3 ml Famotidine (Pepcid) 40 mg PO DAILY [facility] Last Admin: 12/09/17 09:15 Dose: 40 mg Moxifloxacin HCl (Avelox Iv 400mg/250ml Ns) 400 mg in 250 mls @ 167 mls/hr IVPB Q24H [facility] Last Admin: 12/09/17 21:27 Dose: 167 mls/hr Insulin Human Regular (Novolin R) 0 unit SC ACHS [facility] PRN Reason: Protocol Last Admin: 12/09/17 21:28 Dose: Not Given Methylprednisolone (Solu-Medrol) 40 mg IVP Q8H [facility] Last Admin: 12/09/17 17:44 Dose: 40 mg Promethazine HCl/Dextromethorphan (Phenergan Dm Syrup) 5 ml PO TID PRN PRN Reason: Cough - Labs Labs: 12/08/17 09:35 12/08/17 14:53 Assessment and Plan (1) Status asthmaticus Status: Acute (2) Hypoxia Status: Acute (3) Bronchitis Status: Acute (4) Diabetes 1.5, managed as type 2 Status: Acute
[2017-12-10] MEDS: Albuterol-Ipratrop 3 mg / 0.5 (3 ml) UD INH SCH ×4 (01:30→20:32)
[2017-12-10] MEDS: MethylPREDNISolone 40 mg Vial IVP SCH ×4 (01:46→17:28)
[2017-12-10 07:28] LABS: BASO % 0.2 % (0.0-2.0); HEMOGLOBIN 13.3 g/dL (11.0-16.0); LYMPH % 10.4 % (20.0-40.0); MEAN CELL VOLUME 90.6 fL (81.0-99.0); MEAN CORPUSCULAR HGB CONC 34.2 g/dL (33.0-37.0); MONO # 1.2 K/uL (0.0-0.8); MONO % 6.1 % (0.0-10.0); NEUT # 15.9 K/uL (1.8-7.0); NEUT % 83.3 % (50.0-75.0); RBC 4.29 Mil/uL (3.80-5.20); RED CELL DISTRIBUTION WIDTH 12.6 % (11.5-14.5); WHITE BLOOD COUNT 19.1 K/uL (4.8-10.8)
[2017-12-10 07:45] LABS: ALB/GLOB RATIO 1.2 (1.0-2.1); ALBUMIN 3.9 g/dL (3.5-5.0); ALT/SGPT 30 U/L (9-52); AST/SGOT 21 U/L (14-36); BLOOD UREA NITROGEN 21 mg/dL (7-17); CALCIUM 9.2 mg/dl (8.6-10.4); GFR AFRICAN-AMERICAN > 60; GFR NON-AFRICAN AMERICAN > 60
[2017-12-10] MEDS: (Novolin R) Insulin Human Regular 100 units/ml vial SC SCH ×4 (08:30→22:17)
--- NOTE | 2017-12-10 13:25 | CP.PCM.PN ---
Subjective - Date & Time of Evaluation Date of Evaluation: 12/10/17 Time of Evaluation: 13:25 - Subjective Subjective: CHIEF COMPLAINTS TODAY : COUGH WITH WHEEZING NOT RESPONDING TO CURRENT MEDS PRO-BNP N DESATURATING ROS. HEENT : N. Resp : No pleuritic CP ,or hemoptysis Cardio : No anginal CP, PND, orthopnea, palpitation GI : No abd.pain, n/v ,diarrhea or GI bleeding . 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 Musculoskel : No joint swelling , Derm : No rash Psych : Normal affect. Ext : No swelling ,calf pain PE. Pt. is alert awake in no distress. V.S As noted in the chart Head ,ear nose,throat and eyes : Normal. Neck : Supple with normal carotids. Lungs: MARINA WHEEZ E Heart : S1 & S2 normal with S4. No murmur. Abd : Soft non tender with normal bowel sounds. Neuro : Moves all ext. with no localized deficit. Ext : No edema with intact pulses.Non tender calves Derm : No rashes or decubitus ulcer. LABS/RADIOLOGY: ASSESSMENT/PLAN : PULM EVAL Objective - Vital Signs/Intake and Output Vital Signs (last 24 hours): Temp Pulse Resp BP Pulse Ox 97.5 F L 79 20 114/68 98 12/10/17 07:30 12/10/17 12:09 12/10/17 07:30 12/10/17 07:30 12/10/17 07:30 Intake and Output: 12/10/17 12/10/17 11:59 23:59 Intake Total 500 Balance 500 - Medications Medications: Current Medications Acetaminophen (Tylenol 325mg Tab) 650 mg PO Q8 PRN PRN Reason: Headache Last Admin: 12/09/17 17:46 Dose: 650 mg Albuterol/Ipratropium (Duoneb 3 Mg/0.5 Mg (3 Ml) Ud) 3 ml INH RQ6 [facility] Last Admin: 12/10/17 07:30 Dose: 3 ml Famotidine (Pepcid) 40 mg PO DAILY [facility] Last Admin: 12/10/17 11:13 Dose: Not Given Moxifloxacin HCl (Avelox Iv 400mg/250ml Ns) 400 mg in 250 mls @ 167 mls/hr IVPB Q24H [facility] Last Admin: 12/09/17 21:27 Dose: 167 mls/hr Insulin Human Regular (Novolin R) 0 unit SC ACHS [facility] PRN Reason: Protocol Last Admin: 12/10/17 12:29 Dose: 6 unit Methylprednisolone (Solu-Medrol) 40 mg IVP Q8H [facility] Last Admin: 12/10/17 11:13 Dose: Not Given Promethazine HCl/Dextromethorphan (Phenergan Dm Syrup) 5 ml PO TID PRN PRN Reason: Cough - Labs Labs: 12/10/17 07:02 12/10/17 07:02
--- NOTE | 2017-12-10 13:37 | CP.PCM.CON ---
History of Present Illness - History of Present Illness History of Present Illness: Patient is a 37 y/o Female with PMH of asthma and HLD who presented to the ER 4 days ago with shortness of breath, fever, body aches, and non-productive cough. Pulm was consulted due to continued hypoxia when walking, dropping as low as 89 % on RA. The patient currently complains of chest tightness and shortness of breath that improves with a non-rebreather and duonebs. Patient is a 5 pack year smoker, and reports two sick contacts in her family. Patient is currently denying fevers/chills, chest pain, nausea/vomiting. Review of Systems - Review of Systems All systems: reviewed and no additional remarkable complaints except (hortness of breath and cough) Past Patient History - Infectious Disease Hx of Infectious Diseases: None - Past Social History Smoking Status: Light Smoker < 10 Cigarettes Daily - CARDIAC Hx Hypercholesterolemia: Yes - PULMONARY Hx Asthma: Yes - NEUROLOGICAL Hx Neurological Disorder: No - HEENT Hx HEENT Problems: No - RENAL Hx Chronic Kidney Disease: No - ENDOCRINE/METABOLIC Hx Endocrine Disorders: No - HEMATOLOGICAL/ONCOLOGICAL Hx Blood Disorders: No - INTEGUMENTARY Hx Dermatological Problems: No - MUSCULOSKELETAL/RHEUMATOLOGICAL Other/Comment: Sciatica - GENITOURINARY/GYNECOLOGICAL Hx Genitourinary Disorders: No - PSYCHIATRIC Hx Substance Use: No - SURGICAL HISTORY Hx Surgeries: Yes Hx Orthopedic Surgery: Yes (right wrist) Hx Tubal Ligation: Yes Other/Comment: right wrist. - ANESTHESIA Hx Anesthesia: Yes Hx Anesthesia Reactions: No Meds Allergies/Adverse Reactions: Allergies Allergy/AdvReac Type Severity Reaction Status Date / Time Penicillins Allergy Intermediate RASH Verified 12/06/17 04:35 metformin Allergy DIARRHEA Verified 12/09/17 09:29 - Medications Medications: Current Medications Acetaminophen (Tylenol 325mg Tab) 650 mg PO Q8 PRN PRN Reason: Headache Last Admin: 12/09/17 17:46 Dose: 650 mg Albuterol/Ipratropium (Duoneb 3 Mg/0.5 Mg (3 Ml) Ud) 3 ml INH RQ6 [facility] Last Admin: 12/10/17 07:30 Dose: 3 ml Famotidine (Pepcid) 40 mg PO DAILY [facility] Last Admin: 12/10/17 11:13 Dose: Not Given Moxifloxacin HCl (Avelox Iv 400mg/250ml Ns) 400 mg in 250 mls @ 167 mls/hr IVPB Q24H [facility] Last Admin: 12/09/17 21:27 Dose: 167 mls/hr Insulin Human Regular (Novolin R) 0 unit SC ACHS [facility] PRN Reason: Protocol Last Admin: 12/10/17 12:29 Dose: 6 unit Methylprednisolone (Solu-Medrol) 40 mg IVP Q8H [facility] Last Admin: 12/10/17 11:13 Dose: Not Given Promethazine HCl/Dextromethorphan (Phenergan Dm Syrup) 5 ml PO TID PRN PRN Reason: Cough Physical Exam - Head Exam Head Exam: ATRAUMATIC, NORMOCEPHALIC - Eye Exam Eye Exam: Normal appearance - ENT Exam ENT Exam: Mucous Membranes Moist - Neck Exam Neck exam: Positive for: Normal Inspection - Respiratory Exam Respiratory Exam: Rhonchi, Wheezes - Cardiovascular Exam Cardiovascular Exam: REGULAR RHYTHM - GI/Abdominal Exam GI & Abdominal Exam: Normal Bowel Sounds, Soft - Extremities Exam Extremities exam: Positive for: normal inspection Results - Vital Signs Recent Vital Signs: Last Vital Signs Temp 97.5 F L 12/10/17 07:30 Pulse 79 12/10/17 12:09 Resp 20 12/10/17 07:30 BP 114/68 12/10/17 07:30 Pulse Ox 98 12/10/17 07:30 - Labs Result Diagrams: 12/10/17 07:02 12/10/17 07:02 Labs: Laboratory Results - last 24 hr 12/09/17 12/09/17 12/10/17 17:29 21:21 07:02 WBC 19.1 H RBC 4.29 Hgb 13.3 Hct 38.9 MCV 90.6 MCH 31.0 MCHC 34.2 RDW 12.6 Plt Count 396 MPV 8.0 Neut % (Auto) 83.3 H Lymph % (Auto) 10.4 L Metcalfe % (Auto) 6.1 Eos % (Auto) 0.0 Baso % (Auto) 0.2 Neut # (Auto) 15.9 H Lymph # (Auto) 2.0 Metcalfe # (Auto) 1.2 H Eos # (Auto) 0.0 Baso # (Auto) 0.0 Sodium Potassium Chloride Carbon Dioxide Anion Gap BUN Creatinine Est GFR ( Amer) Est GFR (Non-Af Amer) POC Glucose (mg/dL) 275 H 285 H Random Glucose Hemoglobin A1c Calcium Total Bilirubin AST ALT Alkaline Phosphatase Total Protein Albumin Globulin Albumin/Globulin Ratio 12/10/17 12/10/17 12/10/17 07:02 07:02 07:18 WBC RBC Hgb Hct MCV MCH MCHC RDW Plt Count MPV Neut % (Auto) Lymph % (Auto) Metcalfe % (Auto) Eos % (Auto) Baso % (Auto) Neut # (Auto) Lymph # (Auto) Metcalfe # (Auto) Eos # (Auto) Baso # (Auto) Sodium 133 Potassium 4.3 Chloride 96 L Carbon Dioxide 26 Anion Gap 15 BUN 21 H Creatinine 0.7 Est GFR ( Amer) > 60 Est GFR (Non-Af Amer) > 60 POC Glucose (mg/dL) 213 H Random Glucose 265 H Hemoglobin A1c 6.2 Calcium 9.2 Total Bilirubin 0.5 AST 21 ALT 30 Alkaline Phosphatase 68 Total Protein 7.2 Albumin 3.9 Globulin 3.2 Albumin/Globulin Ratio 1.2 12/10/17 10:57 WBC RBC Hgb Hct MCV MCH MCHC RDW Plt Count MPV Neut % (Auto) Lymph % (Auto) Metcalfe % (Auto) Eos % (Auto) Baso % (Auto) Neut # (Auto) Lymph # (Auto) Metcalfe # (Auto) Eos # (Auto) Baso # (Auto) Sodium Potassium Chloride Carbon Dioxide Anion Gap BUN Creatinine Est GFR ( Amer) Est GFR (Non-Af Amer) POC Glucose (mg/dL) 327 H Random Glucose Hemoglobin A1c Calcium Total Bilirubin AST ALT Alkaline Phosphatase Total Protein Albumin Globulin Albumin/Globulin Ratio Assessment & Plan (1) Asthma exacerbation Status: Acute Comment: Patient is a 37 y/o Female with PMH of asthma and HLD who presented to the ER with upper respiratory/ flu like symptoms currently complaining of SOB without non-rebreather. 1. Shortness of breath. - CXR (12/08)- hypoinflation with mild L basilar atelectasis. - Duonebs, antibiotics, steroids, phenargan. - Follow up sputum cultures; Gram stain showed gram + cocci in clusters and few gram + bacilli. - blood cultures negative X2. - Infectious disease following (2) Bronchitis Status: Acute
--- NOTE | 2017-12-10 23:08 | CP.PCM.PN ---
Subjective - Date & Time of Evaluation Date of Evaluation: 12/10/17 Time of Evaluation: 23:08 - Subjective Subjective: CHIEF COMPLAINTS TODAY : AFEBRILE, S/P RR 12/08/17 AND DESATURATION. C/O COUGH/WHEEZING. ON VENTIMASK C/O CHEST TIGHTNESS SEEN BY PULMONARY. ROS. HEENT : N. Resp : No pleuritic CP ,or hemoptysis Cardio : No anginal CP, PND, orthopnea, palpitation GI : No abd.pain, n/v ,diarrhea or GI bleeding . 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 Musculoskel : No joint swelling , Derm : No rash Psych : Normal affect. Ext : No swelling ,calf pain PE. Pt. is alert awake in no distress. V.S As noted in the chart Head ,ear nose,throat and eyes : Normal. Neck : Supple with normal carotids. Lungs: MARINA EXPIRATORY WHEEZE Heart : S1 & S2 normal with S4. No murmur. Abd : Soft non tender with normal bowel sounds. Neuro : Moves all ext. with no localized deficit. Ext : No edema with intact pulses.Non tender calves Derm : No rashes or decubitus ulcer. LABS/RADIOLOGY: REVIEWED CT ANGIOGRAM CHEST -VE FOR PE. mILD LEFT BASILAR CONSOLIDATION/? ATELECTASIS. -VE TROPONINS X2. BLOOD CULTURES -VE ASSESSMENT/PLAN : PULM EVAL NOTED CONTINUE IV ABX IV AVELOX, IV STEROIDS. F/U CULTURES TO ADJUST ANTIBIOTICS. Objective - Vital Signs/Intake and Output Vital Signs (last 24 hours): Temp Pulse Resp BP Pulse Ox 98.2 F 75 20 110/67 99 12/10/17 15:15 12/10/17 15:15 12/10/17 15:15 12/10/17 15:15 12/10/17 15:15 Intake and Output: 12/10/17 12/11/17 18:59 06:59 Intake Total 500 300 Balance 500 300 - Medications Medications: Current Medications Acetaminophen (Tylenol 325mg Tab) 650 mg PO Q8 PRN PRN Reason: Headache Last Admin: 12/09/17 17:46 Dose: 650 mg Albuterol/Ipratropium (Duoneb 3 Mg/0.5 Mg (3 Ml) Ud) 3 ml INH RQ6 [facility] Last Admin: 12/10/17 20:32 Dose: 3 ml Famotidine (Pepcid) 40 mg PO DAILY [facility] Last Admin: 12/10/17 11:13 Dose: Not Given Moxifloxacin HCl (Avelox Iv 400mg/250ml Ns) 400 mg in 250 mls @ 167 mls/hr IVPB Q24H [facility] Last Admin: 12/09/17 21:27 Dose: 167 mls/hr Insulin Human Regular (Novolin R) 0 unit SC ACHS [facility] PRN Reason: Protocol Last Admin: 12/10/17 22:17 Dose: 2 unit Methylprednisolone (Solu-Medrol) 40 mg IVP Q8H [facility] Last Admin: 12/10/17 17:28 Dose: 40 mg Promethazine HCl/Dextromethorphan (Phenergan Dm Syrup) 5 ml PO TID PRN PRN Reason: Cough - Labs Labs: 12/10/17 07:02 12/10/17 07:02 Assessment and Plan (1) Status asthmaticus Status: Acute (2) Hypoxia Status: Acute (3) Bronchitis Status: Acute (4) Diabetes 1.5, managed as type 2 Status: Acute
[2017-12-11] MEDS: MethylPREDNISolone 40 mg Vial IVP SCH ×2 (01:19→09:02)
[2017-12-11] MEDS: Albuterol-Ipratrop 3 mg / 0.5 (3 ml) UD INH SCH ×4 (02:09→19:23)
[2017-12-11] MEDS: (Novolin R) Insulin Human Regular 100 units/ml vial SC SCH ×4 (09:02→21:38)
--- NOTE | 2017-12-11 13:05 | CP.PCM.PN ---
Subjective - Date & Time of Evaluation Date of Evaluation: 12/11/17 Time of Evaluation: 13:04 - Subjective Subjective: CHIEF COMPLAINTS TODAY : STILL HAS COUGH WHEEZING ONLY ON AMBULATION ROS. HEENT : N. Resp : No pleuritic CP ,or hemoptysis Cardio : No anginal CP, PND, orthopnea, palpitation GI : No abd.pain, n/v ,diarrhea or GI bleeding . 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 Musculoskel : No joint swelling , Derm : No rash Psych : Normal affect. Ext : No swelling ,calf pain PE. Pt. is alert awake in no distress. V.S As noted in the chart Head ,ear nose,throat and eyes : Normal. Neck : Supple with normal carotids. Lungs: MARINA WHEEZ E Heart : S1 & S2 normal with S4. No murmur. Abd : Soft non tender with normal bowel sounds. Neuro : Moves all ext. with no localized deficit. Ext : No edema with intact pulses.Non tender calves Derm : No rashes or decubitus ulcer. LABS/RADIOLOGY: ASSESSMENT/PLAN : CONT IV STEROIDS/AB/NEBS Objective - Vital Signs/Intake and Output Vital Signs (last 24 hours): Temp Pulse Resp BP Pulse Ox 97.9 F 75 20 104/65 98 12/11/17 07:57 12/11/17 07:57 12/11/17 07:57 12/11/17 07:57 12/11/17 07:57 - Medications Medications: Current Medications Acetaminophen (Tylenol 325mg Tab) 650 mg PO Q8 PRN PRN Reason: Headache Last Admin: 12/09/17 17:46 Dose: 650 mg Albuterol/Ipratropium (Duoneb 3 Mg/0.5 Mg (3 Ml) Ud) 3 ml INH RQ6 [facility] Last Admin: 12/11/17 07:17 Dose: 3 ml Famotidine (Pepcid) 40 mg PO DAILY [facility] Last Admin: 12/11/17 09:36 Dose: 40 mg Insulin Human Regular (Novolin R) 0 unit SC ACHS [facility] PRN Reason: Protocol Last Admin: 12/11/17 12:03 Dose: 4 unit Moxifloxacin HCl (Avelox) 400 mg PO DAILY [facility] Last Admin: 12/11/17 12:03 Dose: 400 mg Prednisone (Prednisone Tab) 20 mg PO DAILY [facility] Promethazine HCl/Dextromethorphan (Phenergan Dm Syrup) 5 ml PO TID PRN PRN Reason: Cough - Labs Labs: 12/10/17 07:02 12/10/17 07:02
--- NOTE | 2017-12-11 16:22 | CP.PCM.PN ---
Subjective - Date & Time of Evaluation Date of Evaluation: 12/11/17 Time of Evaluation: 13:35 - Subjective Subjective: Patient was seen and evaluated. She states that her breathing has improved and denies any SOB when sitting or laying down. Patient reports improved breathing after Duoneb treatments. She complains of mild lightheadedness when walking to the bathroom, but improved since yesterday. She also reports decreased cough. She did not need to use non-rebreather overnight. Patient denies any current SOB , chest pain, nausea, vomiting. Assessment and Plan: Patient is a 37 y/o Female with PMH of asthma and HLD who presented with upper respiratory/ flu like symptoms and SOB most likely due to asthma exacerbation. -CTA (12/09)- mild left basilar consolidation, likely atelectasis - CXR (12/08)- hypoinflation with mild L basilar atelectasis - Sputum culture- normal oral kourtney; Gram stain showed gram + cocci in clusters and few gram + bacilli - blood cultures negative X2 - Infectious disease following -Continue Avelox -Continue Duoneb and Solumedrol -Phenergan for cough? Objective - Vital Signs/Intake and Output Vital Signs (last 24 hours): Temp Pulse Resp BP Pulse Ox 97.9 F 75 20 104/65 98 12/11/17 07:57 12/11/17 07:57 12/11/17 07:57 12/11/17 07:57 12/11/17 07:57 Intake and Output: 12/11/17 12/11/17 06:59 18:59 Intake Total 300 Balance 300 - Medications Medications: Current Medications Acetaminophen (Tylenol 325mg Tab) 650 mg PO Q8 PRN PRN Reason: Headache Last Admin: 12/09/17 17:46 Dose: 650 mg Albuterol/Ipratropium (Duoneb 3 Mg/0.5 Mg (3 Ml) Ud) 3 ml INH RQ6 [facility] Last Admin: 12/11/17 13:06 Dose: 3 ml Famotidine (Pepcid) 40 mg PO DAILY [facility] Last Admin: 12/11/17 09:36 Dose: 40 mg Insulin Human Regular (Novolin R) 0 unit SC ACHS [facility] PRN Reason: Protocol Last Admin: 12/11/17 12:03 Dose: 4 unit Moxifloxacin HCl (Avelox) 400 mg PO DAILY [facility] Last Admin: 12/11/17 12:03 Dose: 400 mg Prednisone (Prednisone Tab) 20 mg PO DAILY [facility] Promethazine HCl/Dextromethorphan (Phenergan Dm Syrup) 5 ml PO TID PRN PRN Reason: Cough - Labs Labs: 12/10/17 07:02 12/10/17 07:02 Assessment and Plan (1) Asthma exacerbation Status: Acute (2) Bronchitis Status: Acute
--- NOTE | 2017-12-11 16:47 | CARD ---
APPROVED REPORT EKG Measurement Heart [id number] [place] [id number] [id number] <Conclusion> Normal sinus rhythm Nonspecific T wave abnormality Abnormal ECG
--- NOTE | 2017-12-11 16:51 | CARD ---
APPROVED REPORT EKG Measurement Heart [id number] [place] [id number] [id number] <Conclusion> Normal sinus rhythm Normal ECG
--- NOTE | 2017-12-11 22:24 | CP.PCM.PN ---
Subjective - Date & Time of Evaluation Date of Evaluation: 12/11/17 Time of Evaluation: 22:23 - Subjective Subjective: AFEBRILE, STILL C/O WHEEZING SEEN BY PULMONARY. ROS. HEENT : N. Resp : No pleuritic CP ,or hemoptysis Cardio : No anginal CP, PND, orthopnea, palpitation GI : No abd.pain, n/v ,diarrhea or GI bleeding . DIRECTOR OF COLLECTIONS AND ARCHIVES : No headache, vertigo, focal deficit. Musculoskel : No joint swelling , Derm : No rash Psych : Normal affect. Ext : No swelling ,calf pain PE. Pt. is alert awake in no distress. V.S As noted in the chart Head ,ear nose,throat and eyes : Normal. Neck : Supple with normal carotids. Lungs: MARINA EXPIRATORY WHEEZE Heart : S1 & S2 normal with S4. No murmur. Abd : Soft non tender with normal bowel sounds. Neuro : Moves all ext. with no localized deficit. Ext : No edema with intact pulses.Non tender calves Derm : No rashes or decubitus ulcer. LABS/RADIOLOGY: REVIEWED SPUTUM CULTURE -P CT ANGIOGRAM CHEST -VE FOR PE. MILD LEFT BASILAR CONSOLIDATION/? ATELECTASIS. -VE TROPONINS X2. BLOOD CULTURES -VE ASSESSMENT/PLAN : PULM EVAL NOTED CONTINUE IV ABX IV AVELOX, IV STEROIDS. F/U CULTURES TO ADJUST ANTIBIOTICS. Objective - Vital Signs/Intake and Output Vital Signs (last 24 hours): Temp Pulse Resp BP Pulse Ox 98.6 F 79 20 99/62 L 95 12/11/17 15:30 12/11/17 15:30 12/11/17 15:30 12/11/17 15:30 12/11/17 15:30 - Medications Medications: Current Medications Acetaminophen (Tylenol 325mg Tab) 650 mg PO Q8 PRN PRN Reason: Headache Last Admin: 12/09/17 17:46 Dose: 650 mg Albuterol/Ipratropium (Duoneb 3 Mg/0.5 Mg (3 Ml) Ud) [address] [facility] Last Admin: 12/11/17 19:23 Dose: 3 ml Famotidine (Pepcid) [address] [facility] Last Admin: 12/11/17 09:36 Dose: 40 mg Insulin Human Regular (Novolin R) 0 unit SC ACHS [facility] PRN Reason: Protocol Last Admin: 12/11/17 21:38 Dose: 3 unit Moxifloxacin HCl (Avelox) 400 mg PO DAILY [facility] Last Admin: 12/11/17 12:03 Dose: 400 mg Prednisone (Prednisone Tab) [address] [facility] Promethazine HCl/Dextromethorphan (Phenergan Dm Syrup) 5 ml PO TID PRN PRN Reason: Cough - Labs Labs: 12/10/17 07:02 12/10/17 07:02 Assessment and Plan (1) Status asthmaticus Status: Acute (2) Hypoxia Status: Acute (3) Bronchitis Status: Acute (4) Diabetes 1.5, managed as type 2 Status: Acute
[2017-12-12] MEDS: Albuterol-Ipratrop 3 mg / 0.5 (3 ml) UD INH SCH ×2 (01:41→08:08)
[2017-12-12 07:22] LABS: BLOOD UREA NITROGEN 25 mg/dL (7-17); CALCIUM 8.1 mg/dl (8.6-10.4); GFR AFRICAN-AMERICAN > 60; GFR NON-AFRICAN AMERICAN > 60
[2017-12-12 07:31] LABS: BASO % 0.2 % (0.0-2.0); EOS % 0.1 % (0.0-4.0); HEMOGLOBIN 13.7 g/dL (11.0-16.0); LYMPH # 5.1 K/uL (1.0-4.3); MEAN CELL VOLUME 90.6 fL (81.0-99.0); MEAN CORPUSCULAR HEMOGLOBIN 30.9 pg (27.0-31.0); MEAN CORPUSCULAR HGB CONC 34.1 g/dL (33.0-37.0); MEAN PLATELET VOLUME 7.8 fL (7.2-11.7); MONO # 1.3 K/uL (0.0-0.8); MONO % 7.4 % (0.0-10.0); NEUT # 11.6 K/uL (1.8-7.0); NEUT % 64.3 % (50.0-75.0); PLATELET COUNT 406 K/uL (130-400); RBC 4.43 Mil/uL (3.80-5.20); RED CELL DISTRIBUTION WIDTH 12.3 % (11.5-14.5)
[2017-12-12] MEDS: (Novolin R) Insulin Human Regular 100 units/ml vial SC SCH ×2 (08:45→12:51)
[2017-12-12 09:12] VITALS: BP 98/63; PULSE 75; TEMP 97.5; O2SAT 95
[2017-12-12 09:39] LABS: LYMPHOCYTE 28 % (20-40); MONOCYTE 7 % (0-10); MYELOCYTE 5 % (0-0); NEUTROPHIL 60 % (50-75); PLATELET ESTIMATE NORMAL (NORMAL); TOTAL CELLS COUNTED 100
--- NOTE | 2017-12-12 13:14 | CP.PCM.DIS ---
Provider - Provider Date of Admission: 12/08/17 10:46 Attending physician: Ayush Parks MD Time Spent in preparation of Discharge (in minutes): 30 Hospital Course - Lab Results Lab Results: Micro Results 12/06/17 05:30 Blood Blood Culture - Final NO GROWTH AFTER 5 DAYS 12/06/17 05:30 Blood Gram Stain - Final TEST NOT PERFORMED 12/06/17 06:00 Blood Blood Culture - Final NO GROWTH AFTER 5 DAYS 12/06/17 06:00 Blood Gram Stain - Final TEST NOT PERFORMED 12/08/17 Unknown Sputum Gram Stain - Final 12/08/17 Unknown Sputum Sputum Culture - Final NORMAL ORAL DAYAN Most Recent Lab Values WBC 18.0 K/uL (4.8-10.8) H 12/12/17 06:59 RBC 4.43 Mil/uL (3.80-5.20) 12/12/17 06:59 Hgb 13.7 g/dL (11.0-16.0) 12/12/17 06:59 Hct 40.1 % (34.0-47.0) 12/12/17 06:59 MCV 90.6 fL (81.0-99.0) 12/12/17 06:59 MCH 30.9 pg (27.0-31.0) 12/12/17 06:59 MCHC 34.1 g/dL (33.0-37.0) 12/12/17 06:59 RDW 12.3 % (11.5-14.5) 12/12/17 06:59 Plt Count 406 K/uL (130-400) H 12/12/17 06:59 MPV 7.8 fL (7.2-11.7) 12/12/17 06:59 Neut % (Auto) 64.3 % (50.0-75.0) 12/12/17 06:59 Lymph % (Auto) 28.0 % (20.0-40.0) 12/12/17 06:59 [place] % (Auto) 7.4 % (0.0-10.0) 12/12/17 06:59 Eos % (Auto) 0.1 % (0.0-4.0) 12/12/17 06:59 Baso % (Auto) 0.2 % (0.0-2.0) 12/12/17 06:59 Neut # (Auto) 11.6 K/uL (1.8-7.0) H 12/12/17 06:59 Lymph # (Auto) 5.1 K/uL (1.0-4.3) H 12/12/17 06:59 [place] # (Auto) 1.3 K/uL (0.0-0.8) H 12/12/17 06:59 Eos # (Auto) 0.0 K/uL (0.0-0.7) 12/12/17 06:59 Baso # (Auto) 0.0 K/uL (0.0-0.2) 12/12/17 06:59 Neutrophils % (Manual) 60 % (50-75) 12/12/17 06:59 Lymphocytes % (Manual) 28 % (20-40) 12/12/17 06:59 Monocytes % (Manual) 7 % (0-10) 12/12/17 06:59 Myelocytes % 5 % (0-0) H 12/12/17 06:59 Differential Comment 12/08/17 09:35 Platelet Estimate Normal (NORMAL) 12/12/17 06:59 Puncture Site Rra 12/08/17 14:57 pCO2 32 mm/Hg (35-45) L 12/08/17 14:57 pO2 81 mm/Hg (80-100) 12/08/17 14:57 HCO3 23.6 mmol/L (21-28) 12/08/17 14:57 ABG pH 7.44 (7.35-7.45) 12/08/17 14:57 ABG Total CO2 22.7 mmol/L (22-28) 12/08/17 14:57 ABG O2 Saturation 98.9 % (95-98) H 12/08/17 14:57 ABG Base Excess -1.7 mmol/L (-2.0-3.0) 12/08/17 14:57 ABG Hemoglobin 12.6 g/dL (11.7-17.4) 12/08/17 14:57 ABG Carboxyhemoglobin 1.9 % (0.5-1.5) H 12/08/17 14:57 POC ABG HHb (Measured) 1.1 % (0.0-5.0) 12/08/17 14:57 ABG Methemoglobin 1.5 % (0.0-3.0) 12/08/17 14:57 Deangelo Test Pos 12/08/17 14:57 A-a O2 Difference 129.0 mm/Hg 12/08/17 14:57 Respiratory Index 1.6 12/08/17 14:57 Hgb O2 Saturation 95.5 % (95.0-98.0) 12/08/17 14:57 Liter Flow 6.0 12/08/17 14:57 FiO2 35.0 % 12/08/17 14:57 Sodium 134 mmol/L (132-148) 12/12/17 06:59 Potassium 3.7 mmol/L (3.6-5.2) 12/12/17 06:59 Chloride 98 mmol/L (98-107) 12/12/17 06:59 Carbon Dioxide 26 mmol/L (22-30) 12/12/17 06:59 Anion Gap 14 (10-20) 12/12/17 06:59 BUN 25 mg/dL (7-17) H 12/12/17 06:59 Creatinine 0.7 mg/dL (0.7-1.2) 12/12/17 06:59 Est GFR ( Amer) > 60 12/12/17 06:59 Est GFR (Non-Af Amer) > 60 12/12/17 06:59 POC Glucose (mg/dL) 158 mg/dL (65-110) H 12/12/17 11:39 Random Glucose 191 mg/dL (65-105) H 12/12/17 06:59 Hemoglobin A1c 6.2 % (4.2-6.5) 12/10/17 07:02 Calcium 8.1 mg/dl (8.6-10.4) L 12/12/17 06:59 Total Bilirubin 0.5 mg/dL (0.2-1.3) 12/10/17 07:02 AST 21 U/L (14-36) 12/10/17 07:02 ALT 30 U/L (9-52) 12/10/17 07:02 Alkaline Phosphatase 68 U/L (38-126) 12/10/17 07:02 Troponin I < 0.0120 ng/mL (0.00-0.120) 12/08/17 22:48 NT-Pro-B Natriuret Pep 352 pg/mL (0-450) 12/08/17 15:40 Total Protein 7.2 g/dL (6.3-8.3) 12/10/17 07:02 Albumin 3.9 g/dL (3.5-5.0) 12/10/17 07:02 Globulin 3.2 gm/dL (2.2-3.9) 12/10/17 07:02 Albumin/Globulin Ratio 1.2 (1.0-2.1) 12/10/17 07:02 Triglycerides 201 mg/dL (0-149) H 12/09/17 06:20 Cholesterol 190 mg/dL (0-199) 12/09/17 06:20 LDL Cholesterol Direct 165 mg/dL (0-129) H 12/09/17 06:20 HDL Cholesterol 30 mg/dL (30-70) 12/09/17 06:20 Urine Opiates Screen Negative (NEGATIVE) 12/09/17 07:15 Urine Methadone Screen Negative (NEGATIVE) 12/09/17 07:15 Ur Barbiturates Screen Negative (NEGATIVE) 12/09/17 07:15 Ur Phencyclidine Scrn Negative (NEGATIVE) 12/09/17 07:15 Ur Amphetamines Screen Negative (NEGATIVE) 12/09/17 07:15 U Benzodiazepines Scrn Negative (NEGATIVE) 12/09/17 07:15 U Oth Cocaine Metabols Negative (NEGATIVE) 12/09/17 07:15 U Cannabinoids Screen Negative (NEGATIVE) 12/09/17 07:15 Influenza Typ A,B (EIA) Negative for flu a/b (NEGATIVE) 12/06/17 05:41 - Hospital Course Hospital Course: COUGH WITH WHEEZING A/W WHITE EXP. IN ER PT NOT WELL RESPONDED TO BRONCHODILATORS AND ADMITTED FOR FURTHER CARE PAST HIST. ASTHMA PT REQUIRED MORE THAN USUAL TIME TO BREAK HER BRONCHIAL SPASM CT CHEST NEG FOR PE PT STABLE FOR PO MEDS AND D/C Discharge Exam - Head Exam Head Exam: ATRAUMATIC, NORMOCEPHALIC Discharge Plan - Follow Up Plan Condition: FAIR Disposition: HOME/ ROUTINE
--- NOTE | 2017-12-12 17:16 | CP.PCM.PN ---
Subjective - Date & Time of Evaluation Date of Evaluation: 12/12/17 Time of Evaluation: 11:00 - Subjective Subjective: Alert, and oriented x3, no sob or chest pains , no wheezing now. Objective - Vital Signs/Intake and Output Vital Signs (last 24 hours): Temp Pulse Resp BP Pulse Ox 97.5 F L 75 20 98/63 L 95 12/12/17 09:11 12/12/17 09:11 12/12/17 09:11 12/12/17 09:11 12/12/17 09:11 Intake and Output: 12/12/17 12/12/17 06:59 18:59 Intake Total 350 480 Balance 350 480 - Labs Labs: 12/12/17 06:59 12/12/17 06:59 Assessment and Plan - Assessment and Plan (Free Text) Assessment: Patient is alert and oriented, ambulating well. No wheezing or distress now. Says that she is very sensitive to all meds. Discussed with DR Parks and DR Lott, plan to discharge home on ventolin puffs qid as needed. Advised to follow diabetic diet, do regular exercises and follow up with her blood sugars as needed. Advised to f/u with PMD in 1 week
== END 2017-12-12 16:07 | disposition home or self-care (01) | DRG 96 ==
LOC: C.ER 04:31 → C.9E 10:46 → OBSVTOIN 10:46 → UNDOADMOB 10:46 → INTOOBSV 10:46 → C.3T 14:25 → C.9E 14:25 → C.3T 12-08 10:46 → C.9E 12-08 10:46 → OBSVTOIN 12-08 10:46 → C.3T 12-10 10:49
PROVIDERS: ADMIT Internal Medicine Cardiovascular Disease; ATTEND Internal Medicine Cardiovascular Disease
DX: J45.902 Unspecified asthma with status asthmaticus (principal); R09.02 Hypoxemia; E11.9 Type 2 diabetes mellitus without complications; E78.5 Hyperlipidemia, unspecified; F17.200 Nicotine dependence, unspecified, uncomplicated; J40 Bronchitis, not specified as acute or chronic; Z79.4 Long term (current) use of insulin

== ENCOUNTER 2018-02-26 10:30 | Emergency (ER) | payer OTHER ==
[2018-02-26 10:54] VITALS: TEMP 98
[2018-02-26 12:17] LABS: SQUAMOUS EPITHIAL 11 /hpf (0-5); URINE BACTERIA RARE (<OCC); URINE BILIRUBIN NEGATIVE (NEGATIVE); URINE BLOOD NEGATIVE (NEGATIVE); URINE CLARITY Hazy (Clear); URINE COLOR Yellow (YELLOW); URINE GLUCOSE (UA) 3+ mg/dL (Normal); URINE LEUKOCYTE ESTERASE NEG Leu/uL (Negative); URINE PROTEIN NEGATIVE (NEGATIVE); URINE UROBILINOGEN NORMAL mg/dL (0.2-1.0)
[2018-02-26] MEDS ORDERED: Lidocaine 5% Patch TD ONE (12:28)
[2018-02-26] MEDS: Lidocaine 5% Patch TD STA (12:30)
--- NOTE | 2018-02-26 13:00 | C.PDOC ---
History Of Present Illness 38 y/o female presents to the ED complaining of 4 days of right lower back pain , radiating to the right leg. States she had similar pain on the left side before. No injury or trauma. Denies any weakness, numbness, fever, dysuria, or incontinence of bowel or bladder. Time Seen by Provider: 02/26/18 11:25 Chief Complaint (Nursing): Back Pain History Per: Patient History/Exam Limitations: no limitations Onset/Duration Of Symptoms: Days Current Symptoms Are (Timing): Still Present Past Medical History Reviewed: Historical Data, Nursing Documentation, Vital Signs Vital Signs: Last Vital Signs Temp 98 F 02/26/18 10:51 Pulse 82 02/26/18 13:08 Resp 16 02/26/18 13:08 BP 112/69 02/26/18 13:08 Pulse Ox 99 02/26/18 13:08 - Medical History PMH: Asthma, Hypercholesterolemia, Kidney Stones, Chronic Kidney Disease Denies: Anxiety Family History: States: No Known Family Hx - Social History Hx Tobacco Use: Yes (light smoker) Hx Alcohol Use: No Hx Substance Use: No - Immunization History Hx Tetanus Toxoid Vaccination: No Hx Influenza Vaccination: No Hx Pneumococcal Vaccination: No Review Of Systems Except As Marked, All Systems Reviewed And Found Negative. Constitutional: Negative for: Fever Genitourinary: Negative for: Dysuria, Frequency, Incontinence Musculoskeletal: Positive for: Back Pain, Leg Pain Neurological: Negative for: Weakness, Numbness Physical Exam - Physical Exam Appears: Non-toxic, No Acute Distress Skin: Normal Color, Warm, Dry Head: Atraumatic, Normacephalic Eye(s): bilateral: Normal Inspection Chest: Symmetrical Respiratory: No Other (respiratory distress) Back: No Vertebral Tenderness, Paraspinal Tenderness (to the right paralumbar and buttock area), Straight Leg Raising (Straight leg raise (+) at 45 degrees on the right) Extremity: Bilateral: Atraumatic, Normal Color And Temperature, Normal ROM Neurological/Psych: Oriented x3, Normal Speech, No Other (focal deficits) Gait: Steady ED Course And Treatment O2 Sat by Pulse Oximetry: 98 (RA) Pulse Ox Interpretation: Normal Progress Note: Urine was sent. Patient given Toradol, Valium, Neurontin, and Lidoderm patch in the ED. UA reviewed, and is negative. On reevaluation patient reports improvement in pain and feels comfortable going home. Patient is stable for discharge. Provided rx for Neurontin, lidoderm patch, Motrin, and Valium. Advised pt to follow up with PMD in 1-2 days. Reevaluation Time: 12:51 Reassessment Condition: Improved Disposition Counseled Patient/Family Regarding: Diagnosis, Need For Followup, Rx Given - Disposition Referrals: Vick Aviles MD [Medical Doctor] - Disposition: HOME/ ROUTINE Disposition Time: 12:58 Condition: STABLE Additional Instructions: Follow up with PMD within 1-2 days. Return to ED if feel worse. 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 - Scribe Statement The provider has reviewed the documentation as recorded by the Scribe (Yazmin Mathur) All medical record entries made by the Scribe were at my direction and personally dictated by me. I have reviewed the chart and agree that the record accurately reflects my personal performance of the history, physical exam, medical decision making, and the department course for this patient. I have also personally directed, reviewed, and agree with the discharge instructions and disposition.
[2018-02-26 13:09] VITALS: BP 112/69; PULSE 82; RESP 16
[2018-02-26 13:48] VITALS: O2SAT 98
== END 2018-02-26 13:08 | disposition home or self-care (01) ==
LOC: C.ER 10:30
DX: M54.30 Sciatica, unspecified side (principal)
CPT/HCPCS: 81001; 96372; 99284; J1885

== ENCOUNTER 2018-05-14 20:08 | Emergency (ER) | payer OTHER ==
[2018-05-14] MEDS ORDERED: Albuterol-Ipratrop 3 mg / 0.5 (3 ml) UD ONE ×2 (20:35→21:05)
--- NOTE | 2018-05-14 20:53 | C.PDOC ---
History Of Present Illness 38 y/o female presents to ED with c/o wheezing and sob developed today. Upon arrival patient received duoneb and states feels better, contrary to triage denies chest pain, nausea, vomiting, leg swelling or any other complaints at this time. Patient admits she smoke 2-3 cigarettes daily. Time Seen by Provider: 05/14/18 20:52 Chief Complaint (Nursing): Shortness Of Breath History Per: Patient History/Exam Limitations: no limitations Onset/Duration Of Symptoms: Hrs Current Symptoms Are (Timing): Still Present Severity: Mild Pain Scale Rating Of: 2 Associated Symptoms: denies: Fever, Chills, Sweating, Chest Pain Recent travel outside of the [place]: No Past Medical History Reviewed: Historical Data, Nursing Documentation, Vital Signs Vital Signs: Last Vital Signs Temp 98.1 F 05/14/18 20:36 Pulse 91 H 05/14/18 22:37 Resp 21 05/14/18 22:37 BP 108/52 L 05/14/18 22:37 Pulse Ox 95 05/14/18 22:37 - Medical History PMH: Asthma, Depression, Hypercholesterolemia, Kidney Stones, Chronic Kidney Disease Surgical History: No Surg Hx Family History: States: No Known Family Hx - Social History Hx Tobacco Use: Yes (light smoker) Hx Alcohol Use: No Hx Substance Use: No - Immunization History Hx Tetanus Toxoid Vaccination: No Hx Influenza Vaccination: No Hx Pneumococcal Vaccination: Yes Review Of Systems Constitutional: Negative for: Fever, Chills Cardiovascular: Negative for: Chest Pain Respiratory: Positive for: Shortness of Breath, Wheezing. Negative for: Cough Gastrointestinal: Negative for: Nausea, Vomiting Skin: Negative for: Rash Physical Exam - Physical Exam Appears: Non-toxic, No Acute Distress Skin: Warm, Dry, No Rash Head: Normacephalic Oral Mucosa: Moist Neck: Supple Chest: Symmetrical Cardiovascular: Rhythm Regular Respiratory: No Rales, No Rhonchi, Wheezing (scattered) Gastrointestinal/Abdominal: Soft, No Tenderness, No Guarding, No Rebound Extremity: No Pedal Edema, Capillary Refill (<2 seconds) Neurological/Psych: Oriented x3, Normal Speech ED Course And Treatment ECG: Interpreted By Me, Viewed By Me ECG Rhythm: Sinus Rhythm (87), Nonspecific Changes O2 Sat by Pulse Oximetry: 94 (RA) Pulse Ox Interpretation: Normal - Radiology CXR: Interpreted by Me, Viewed By Me Progress Note: 11:38 PM no wheezinfg. feels fine wants to go home Reevaluation Time: 23:38 Reassessment Condition: Improved Medical Decision Making Medical Decision Making: Upon provider reevaluation patient is feeling better, is medically stable, and requires no further treatment in the ED at this time. Patient will be discharged home with Rx for prednisone . Counseling was provided and all questions were answered regarding diagnosis and need for follow up with dr hinds. There is agreement to discharge plan. Return if symptoms persist or worsen. Disposition Counseled Patient/Family Regarding: Studies Performed, Diagnosis, Need For Followup, Rx Given - Disposition Referrals: Marlene Hinds MD [Staff Provider] - Disposition: HOME/ ROUTINE Disposition Time: 20:53 Condition: FAIR Prescriptions: Prednisone [Deltasone] 20 mg PO DAILY #5 tablet Instructions: Asthma, Adult (DC), Rescue vs Controller Inhalers Forms: [employer] (Urdu) - Clinical Impression Clinical Impression: Asthma exacerbation - Scribe Statement The provider has reviewed the documentation as recorded by the Scribzoltan Matos All medical record entries made by the Scribe were at my direction and personally dictated by me. I have reviewed the chart and agree that the record accurately reflects my personal performance of the history, physical exam, medical decision making, and the department course for this patient. I have also personally directed, reviewed, and agree with the discharge instructions and disposition.
[2018-05-14] MEDS: Albuterol-Ipratrop 3 mg / 0.5 (3 ml) UD IH SCH ×3 (21:05→21:26)
[2018-05-15 00:07] VITALS: BP 106/69; PULSE 96; RESP 16; TEMP 98.5; O2SAT 99
--- NOTE | 2018-05-15 11:04 | RAD ---
Date of service: 05/14/2018 HISTORY: Wheezing. COMPARISON: 12/08/2017. TECHNIQUE: Chest PA and lateral FINDINGS: LUNGS: No active pulmonary disease. PLEURA: No significant pleural effusion identified. No pneumothorax apparent. CARDIOVASCULAR: Normal. OSSEOUS STRUCTURES: No significant abnormalities. VISUALIZED UPPER ABDOMEN: Normal. OTHER FINDINGS: None. IMPRESSION: No active disease. No significant interval change compared to the prior examination(s). Concordant results with the preliminary interpretation rendered by the emergency department physician procedure.
--- NOTE | 2018-05-15 11:22 | CARD ---
APPROVED REPORT Date of service: 05/14/2018 EKG Measurement Heart [id number] [place] [id number] <Conclusion> Normal sinus rhythm Normal ECG
== END 2018-05-15 00:07 | disposition home or self-care (01) ==
LOC: C.ER 20:08
DX: J45.901 Unspecified asthma with (acute) exacerbation (principal); F17.210 Nicotine dependence, cigarettes, uncomplicated
CPT/HCPCS: 71046; 93005; 96374; 99285; J2930